=== PATIENT | female | born 1970 | race Caucasian/White ===

== ENCOUNTER 2020-07-28 05:38 | Inpatient (IN) ==
--- NOTE | 2020-07-15 13:50 | Anesthesiology Consultation ---
Date of Service July 15, 2020 Assessment & Plan (1) Encounter for pre-operative examination: Chart Review Chart Review: Pending: Refer to Additional Notes / Consult section (pending cardio clearance 07/23 and preop Covid testing ) and Patient seen in Pre Admission Testing Did call [facility]- no previous EKGs on file. Pt was set up for cardio clearance appt on 07/23/20 at [facility] secondary to abnormal EKG. Per PAT appt on 07/15/20, pt resides in [facility]. Denies any recent travel with exception to [facility] for medical appts. No known Covid positive contacts or Covid related symptoms. Scheduled for preop Covid testing 07/21/20= will await results. Educated on importance of self quarantining, social distancing and wearing mask in public both for the patient and household contacts. Consults Requested cardiac Teaching & Discussion Pre-Anesthesia Teaching/Discussion Notes: Instructed NPO after midnight before surgery,except medications with 15 cc of water. Medication instructions p rovided according to the PAT guidelines. History Surgery Operation Date: 07/28/20 10:05 Proposed Procedures p L4-S1 Decompression and Fusion, Spinal Cord Monitoring - Jose Manuel Sommer DO Height/Weight Height: 4 ft 11.75 in Weight: 68.7 kg Allergies Allergy/AdvReac Type Severity Reaction Status Date / Time doxycycline Allergy Intermediate Hives Verified 07/10/20 09:53 Penicillins Allergy Intermediate SWELLING/HI Verified 07/10/20 09:53 VES Medications Home Medications Medication Instructions Recorded Confirmed Last Taken No Known Home Medications 07/10/20 07/10/20 Unknown Past Medical History Medical History History of kidney stones NO CURRENT ISSUES Lumbar herniated disc CAUSING RT FOOT NUMBNESS/TINGLING SENSATION Exercise / Class Metabolic Activity II 4-5 Yardwork/Stairs/Walk up hill (ONE FLIGHT OF STAIRS -NO CHEST PAIN OR SOB ) Past Family History Family History Father Family history of diabetes mellitus Other No family history of adverse response to anesthesia Past Surgical History Surgical History History of bilateral tubal ligation History of tooth extraction Hx of lumpectomy RT/LEFT (BENIGN) Past Anesthesia History No Hx of Anesthesia Complications and No Family Hx of Anesthesia Complications History of PONV No Hx of PONV and No Hx of Motion Sickness Social History Smoking Status: Current every day smoker tobacco type: cigarettes Smoking cigarettes per day: 20 CIG DAILY Do You Dip or Chew Tobacco: No Hx Alcohol Use: No Hx Substance Use: No Review of Systems Patient denies chest pain, shortness of breath, dyspnea on exertion, reflux, cough, wheezing, palpitations. No hx of seizures, stroke, NH, apnea/snoring. No hx of blood clots or blood tra nsfusions Physical Exam Vital Signs VITALS BP 155/91 P 75 TEMP 97.6 SP02 98% RESP 16 Constitutional no acute distress ENMT Mouth: no TMJ clicking Thyromental Distance: < 3.5 Finger Breadths (3.0) Mallampati Class: II (smaller mouth ) Missing all teeth Neck + limited neck extension (mild ) Respiratory normal respiratory effort; no respiratory distress Auscultation: lungs clear to auscultation bilaterally and + diminished lung sounds (mild throughout ); no wheezes Cardiovascular Rate/Rhythm: regular rate and regular rhythm Heart Sounds: no murmur Vessels: no carotid bruit Musculoskeletal Spine: no pain with cervical ROM Extremities: extremities normal to inspection Psychiatric Orientation: alert Testing Laboratory Results 07/15/20 13:56 07/15/20 13:56 PT 10.3 Seconds (9.0-12.0) 07/15/20 13:56 INR 1.0 (0.9-1.1) 07/15/20 13:56 APTT 27.6 Seconds (21.0-31.0) 07/15/20 13:56 Urine Color Yellow 07/15/20 Unknown Urine Appearance Clear (Clear) 07/15/20 Unknown Urine pH 5.0 (4.5-7.5) 07/15/20 Unknown Ur Specific Arabi 1.025 (1.000-1.030) 07/15/20 Unknown Urine Protein Trace (Negative) H 07/15/20 Unknown Urine Glucose (UA) Negative (Negative) 07/15/20 Unknown Urine Ketones Negative (Negative) 07/15/20 Unknown Urine Nitrite Negative (Negative) 07/15/20 Unknown Ur Leukocyte Esterase Negative (Negative) 07/15/20 Unknown Urine RBC 5-10 /hpf (0-4) H 07/15/20 Unknown Urine WBC 0-5 /hpf (0-5) 07/15/20 Unknown Ur Epithelial Cells >30 /lpf (0-5) H 07/15/20 Unknown Blood Type B Positive 07/15/20 13:56 Antibody Screen NEGATIVE 07/15/20 13:56 Electrocardiogram Date: 07/15/20 Findings: + NSR @ (65) ST and T wave abnormality, consider anterolateral ischemia. (Set up for cardio clearance) Chest X-Ray Date: 07/15/20 Findings: + NAD
--- NOTE | 2020-07-15 14:33 | XRay Report ---
XR chest Pre-admission PA/Lat CLINICAL HISTORY: Preoperative evaluation. COMPARISON STUDY: No previous studies for comparison. FINDINGS: Lung volumes are normal. Lungs are clear. There is no pneumothorax or pleural effusion. Car diac size is normal. Mediastinal contours are normal. There is no evidence for pulmonary edema. IMPRESSION: No acute cardiopulmonary findings. ACT 112: Negative or not required by law. Electronically signed by: Leroy Wood M.D. 07/15/2020 2:32 PM
[2020-07-15 15:29] LABS: Basophils # (auto) 0.07 K/uL (0-0.2); Eosinophils # (auto) 0.13 K/uL (0-0.5); Eosinophils % (auto) 1.8 %; Hemoglobin 14.5 g/dL (12.0-16.0); Immature Granulocytes # (auto) 0.02 K/uL (0.00-0.02); Immature Granulocytes % (auto) 0.3 %; Lymphocytes % (auto) 30.8 %; Mean Corpuscular Hemoglobin 30.3 pg (25-34); Mean Corpuscular Hgb Conc 35.4 g/dL (32-36); Mean Corpuscular Volume 85.8 fL (80-100); Mean Platelet Volume 9.8 fL (7.4-10.4); Monocytes # (auto) 0.36 K/uL (0.11-0.59); Neutrophils # (auto) 4.36 K/uL (1.4-6.5); Neutrophils % (auto) 61.1 %; Platelet Count 292 K/uL (130-400); RDW Coefficient of Variation 12.7 % (11.5-14.5); Red Blood Count 4.78 M/uL (4.2-5.4); White Blood Count 7.14 K/uL (4.8-10.8)
--- NOTE | 2020-07-15 15:43 | Electrocardiogram Report ---
Test Reason : Blood Pressure : / mmHG Vent. Rate : 065 BPM Atrial Rate : 065 BPM P-R Int : 164 ms QRS Dur : 080 ms QT Int : 394 ms P-R-T Axes : 071 015 -37 degrees QTc Int : 409 ms Normal sinus rhythm Abnormal ECG No previous ECGs available Confirmed by Yifan Guadarrama ([id number]) on 07/15/2020 3:43:15 PM Referred By: Jose Manuel Sommer Confirmed By:Yifan Guadarrama
[2020-07-15 15:46] LABS: Appearance Urine Clear (Clear); Bilirubin Urine Negative (Negative); Blood Urine 2+ (Negative); Color Urine Yellow; Glucose Urine UA Negative (Negative); Ketones Urine Negative (Negative); Leukocyte Esterase Urine Negative (Negative); Nitrite Urine Negative (Negative); Protein Urine Trace (Negative); Specific Gravity Urine 1.025 (1.000-1.030); Urobilinogen Urine Negative (Negative)
[2020-07-15 15:50] LABS: Partial Thromboplastin Time 27.6 Seconds (21.0-31.0); Prothrombin Time 10.3 Seconds (9.0-12.0)
[2020-07-15 16:11] LABS: Bacteria Urine 1+ (Negative); Epithelial Cell Urine >30 /lpf (0-5); WBC Urine 0-5 /hpf (0-5)
[2020-07-15 16:12] LABS: BUN Creatinine Ratio 12.5 (10-20); Calcium 9.3 mg/dl (8.5-10.1); Creatinine Clr Calc Pharmacy 81.7 ml/min; Est GFR (African American) 116.3; Est GFR (Non-African American) 100.3; Potassium 3.4 mmol/L (3.5-5.1)
[2020-07-28] MEDS ORDERED: GABAPENTIN 900 MG DOSE PO SCH (06:00)
[2020-07-28] MEDS ORDERED: CLINDAMYCIN 600 MG/54 ML BAG IV SCH (06:00)
[2020-07-28] MEDS ORDERED: LR 15ML/HR IV SCH (06:00)
[2020-07-28] MEDS ORDERED: MIDAZOLAM HCL 1 MG/ML 2ML VIAL ONE (06:52)
[2020-07-28] MEDS ORDERED: BUPIVACAINE/EPINEPHRINE 0.5% MPF 1:200,000 30 ML VIAL ONE (06:59)
[2020-07-28] MEDS ORDERED: BACITRACIN INJ 50,000 UNIT VIAL ONE (06:59)
[2020-07-28] MEDS ORDERED: PROPOFOL IV EMULSION 10 MG/ML 20 ML VIAL IV ONE (07:01)
[2020-07-28] MEDS ORDERED: LIDOCAINE HCL 2% 2 ML VIAL/AMP(20MG/ML) INFIL ONE ×2 (07:01→07:14)
[2020-07-28] MEDS ORDERED: fentaNYL citrate 100 MCG/2 ML VIAL ONE ×2 (07:01→07:09)
[2020-07-28] MEDS ORDERED: HYDROmorphone INJ 2 MG/ML SYR/VIAL ONE (07:09)
[2020-07-28] MEDS ORDERED: ONDANSETRON INJ 2 MG/ML 2 ML VIAL ONE (07:09)
[2020-07-28] MEDS ORDERED: DEXAMETHASONE SOD INJ 4 MG/ML VIAL ONE (07:09)
[2020-07-28] MEDS ORDERED: HYDROmorphone INJ 1 MG/ML SYRINGE IV PRN ×2 (07:34→11:18)
[2020-07-28] MEDS ORDERED: ATROPINE SULFATE 0.1 MG/ML 10ML SYR IV PRN (07:34)
[2020-07-28] MEDS ORDERED: ONDANSETRON INJ 2 MG/ML 2 ML VIAL IV PRN ×2 (07:34→11:18)
[2020-07-28] MEDS ORDERED: LABETALOL HCL IV 5 MG/ML 20ML IV PRN (07:34)
--- NOTE | 2020-07-28 07:41 | History & Physical Bridge Note ---
Date of Service July 28, 2020 History & Physical Bridge Note I have examined the patient, reviewed the History & Physical and in the interval since the performance of the History & Physical I have noted the following changes of clinical significance: no changes noted
--- NOTE | 2020-07-28 07:42 | History & Physical Report ---
Date of Service July 28, 2020 Assessment & Plan (1) Lumbar disc herniation with radiculopathy: Admission and Anticipated Discharge Date Admission Date: L4-S1 decompression fusion History of Present Illness Chief Complaint: Back and leg pain Primary Care Provider: Chelita Chong MD This is a 50-year-old female who presents with chronic persistent back and leg pain after failing course of nonoperative care she is here for surgical invention. Allergies Allergy/AdvReac Type Severity Reaction Status Date / Time doxycycline Allergy Intermediate Hives Verified 07/28/20 06:10 Penicillins Allergy Intermediate SWELLING/HI Verified 07/28/20 06:10 VES Home Medications Medication Instructions Recorded Confirmed Type No Known Home Medications 07/10/20 07/28/20 History Past Med/Surg History Medical History History of kidney stones NO CURRENT ISSUES Lumbar herniated disc CAUSING RT FOOT NUMBNESS/TINGLING SENSATION Surgical History History of bilateral tubal ligation History of tooth extraction Hx of lumpectomy RT/LEFT (BENIGN) Family History Father Family history of diabetes mellitus Other No family history of adverse response to anesthesia Social History Smoking Status: Current every day smoker Cigarettes Per Day: 20 CIG DAILY; Second Hand Exposure: Yes; Do You Dip or Chew Tobacco: No; Tobacco Cessation Education Requested by Patient: No Hx Alcohol Use: No Hx Substance Use: No Preferred Language: Martiniquais Privacy Specialist Required: No Beliefs That Will Affect Care: None Current Living Situation: Spouse Feels Safe at Home: Yes Safety Concerns: Feels Safe At This Time Assistive Devices: Glasses Physical Exam Physical Exam: Patient is alert and oriented Heart regular in rhythm Lungs clear to auscultation Results & Data ([facility]) Vital Signs (Past 12 Hours) Vital Signs Temp Pulse Resp BP Pulse Ox 07/28/20 06:12 36.6 C 66 20 160/84 H 98
[2020-07-28] MEDS ORDERED: FLOSEAL HEMOSTATIC MATRIX 10ML TOP ONE (08:43)
[2020-07-28] MEDS ORDERED: NEOSTIGMINE METHYLSULFATE 1 MG/ML 10ML VIAL ONE (09:19)
[2020-07-28] MEDS ORDERED: ePHEDrine sulfate 50 MG/ML SYR ONE (09:19)
[2020-07-28] MEDS ORDERED: GLYCOPYRROLATE 0.2 MG/ML VIAL ONE (09:20)
--- NOTE | 2020-07-28 10:08 | Operative Report ---
Post Operative Report Pre & Post Diagnosis Operation Date: 07/28/20 07:45 Pre-Op Diagnosis: Lumbar Disc Herniation with Radiculopathy L4-S1 Post-Op Diagnosis: Lumbar Disc Herniation with Radiculopathy L4-S1 I identified the patient and participated in the time-out.: Yes Procedure Operation Date: 07/28/20 07:45 Actual Procedures #1 lumbar decompression with bilateral medial facetectomies and foraminotomies L4-5 L5-S1. #2 posterior spinal fusion L4-5 L5-S1. #3 placement posterior instrumentation L4-5 L5-S1. #4 interbody fusion L4-5 L5 S1. #5 placement peek cage 10 x 22 mm at L4-5 and 8 x 22 mm L5-S1 peer #6 placement locally harvested morselized autograft in the posterior gutters. #7 placement infuse collagen sponge, and master graft in the posterior lateral gutters and ostial amp interbody space. Surgeon Jose Manuel Sommer, Bdr Eliane Ruiz Estimated Blood Loss 50 Findings Consistent with Post-Op Diagnosis Specimens None Indications This is a 50-year-old female who presents with above-mentioned diagnosis after failing since course of nonoperative care she is here for the above-mentioned procedure. Description of Procedure Patient was met with identified informed consent obtained. Patient was then taken to the operative suite underwent an patient placed in a prone position the Milad table atop the Venu frame. All bony prominences well-padded eyes inspected to ensure no external pressure placed upon the. This point the lumbar spine was prepped and draped in a sterile fashion. Sharp dissection with the assistance of Bovie cautery was performed down to and exposing the lamina and transverse processes of L4-L5 and sacral ala bilaterally. From a caudal cephalad fashion complete laminectomy of L5 and L4 was performed with bilateral medial facetectomies and foraminotomies addressing spinal stenosis. Pedicle screws were then placed in L4-L5 and S1 levels bilaterally with assistance of fluoroscopy the proper sized ayanna placed. By way of a transforaminal portion right a complete discectomy of L5-S1 was performed this included removal of all fragments of disc material that migrated caudally severely compressing the exiting and traversing S1 nerve roots. The endplates were then curetted to subcortical bleeding bone and an 8 x 22 mm peek cage filled with osteobone graft tapped in position. Then proceeded L4-[address] of transfer approach on the right complete discectomy performed endplates curetted to subcortical bleeding bone and the 10 x 22 mm peek cage filled with osteobone graft tapped position. The rods were then locked into final position bilaterally. The transverse processes of L4-L5 and sacral ala burred to subcortical bleeding bone. Infuse collagen sponge master graft local autograft was placed in the posterior gutters. 15 round ELVIRA drain inserted. The incision was then closed with 1 Vicryl to fascia 2-0 Vicryl subcutaneously and 4 Monocryl for final skin closure. Steri-Strip sterile dressings placed. Patient waken taken to PACU stable condition. Please note spinal cord monitoring was utilized at the procedure no changes noted. Lastly Eliane Ruiz was present at the entire surgery involved the patient positioning complex portions of the surgery and final skin closure. I attest to the content of the Intraoperative Record and any orders documented therein. Any exceptions are noted below.
--- NOTE | 2020-07-28 10:46 | Fluoroscopy Report ---
INTRAOPERATIVE RADIOGRAPHS CLINICAL HISTORY: L4-S1 spinal fusion. Fluoroscopy time: 23 seconds. FINDINGS: 2 spot fluoroscopic views of the lumbar spine are presented. There has been discectomy at L 4-L5 and L5-S1 with laminectomy and posterior fusion from L4-S1. Interpedicular screws are present at all levels. The orthopedic hardware appears intact. IMPRESSION: Intraoperative images from L4-S1 spinal fusion as above. Electronically signed by: Devaughn Encarnacion M.D. 07/28/2020 10:45 AM
--- NOTE | 2020-07-28 10:53 | Anesthesiology Progress Note ---
Date of Service July 28, 2020 Anesthesia Post Procedure Vital Signs Vital Signs: Temp Pulse Pulse Resp BP Pulse Ox 07/28/20 10:40 80 12 111/80 94 07/28/20 10:30 72 12 112/64 95 07/28/20 10:20 36.7 C 84 16 125/76 95 07/28/20 06:12 36.6 C 66 20 160/84 H 98 Transfer of Care Handoff Completed per policy Notes Mental Status: alert / awake / arousable Patient Amnestic to Procedure: Yes Nausea / Vomiting: adequately controlled Pain: adequately controlled Airway Patency, RR, SpO2: stable & adequate BP & HR: stable & adequate Hydration State: stable & adequate Anesthetic Complications: no major complications apparent
[2020-07-28] MEDS ORDERED: ACETAMINOPHEN 1,000 MG/100 ML VIAL IV PRN (11:18)
[2020-07-28] MEDS ORDERED: ALUMINUM/MAGNESIUM SUSP 30 ML UDC PO PRN (11:18)
[2020-07-28] MEDS ORDERED: LORazepam 0.5 MG/1 ML VIAL IV PRN (11:18)
[2020-07-28] MEDS ORDERED: HYDROmorphone INJ 0.5 MG/0.5 ML SYR IV PRN (11:18)
[2020-07-28] MEDS ORDERED: FAMOTIDINE 20 MG TAB PO PRN (11:18)
[2020-07-28] MEDS ORDERED: ONDANSETRON 4 MG OD TAB PO PRN (11:18)
[2020-07-28] MEDS ORDERED: METOCLOPRAMIDE HCL INJ 5 MG/ML 2 ML VIAL IV PRN (11:18)
[2020-07-28] MEDS ORDERED: MAGNESIUM HYDROXIDE SUSP 30 ML UDC PO PRN (11:18)
[2020-07-28] MEDS ORDERED: hydrOXYzine HCl 25 MG TAB PO PRN (11:18)
[2020-07-28] MEDS ORDERED: PROMETHAZINE HCL 12.5 MG in SODIUM CHLORIDE 0.9% 50 ML IV PRN (11:18)
[2020-07-28] MEDS ORDERED: DO NOT ADMINISTER FLU VACCINE PRN (11:18)
[2020-07-28] MEDS ORDERED: diphenhydrAMINE Capsule 25 MG CAP PO PRN (11:18)
[2020-07-28] MEDS ORDERED: oxyCODONE HCL IR 5 MG TAB (IMMEDIATE RELEASE) PO PRN (11:18)
[2020-07-28] MEDS ORDERED: NALOXONE HCL 0.4 MG/1 ML VIAL/CARP IV PRN (11:18)
[2020-07-28] MEDS ORDERED: traMADol HCL 50 MG TABLET PO PRN (11:18)
[2020-07-28] MEDS ORDERED: bisacodyL 10 MG SUPP PR PRN (11:18)
[2020-07-28] MEDS ORDERED: LORazepam 0.5 MG TAB PO PRN (11:18)
[2020-07-28] MEDS ORDERED: SOD PHOSPHATE/SOD BIPHOSPHATE ENEMA 132 ML BTL PR PRN (11:18)
[2020-07-28] MEDS ORDERED: DO NOT ADMINISTER PNEUMOCOCCAL VACCINE PRN (11:18)
[2020-07-28] MEDS: KETOROLAC TROMETHAMINE 15 MG/ML VIAL IV SCH ×3 (13:15→23:17)
[2020-07-28] MEDS: LACTATED RINGER'S 1,000 ML IV SCH ×2 (13:15→17:24)
[2020-07-28] MEDS: CLINDAMYCIN 600 MG in DEXTROSE 5% 50 ML IV SCH ×2 (16:24→23:16)
[2020-07-28] MEDS: DOCUSATE SODIUM/SENNA 50/8.6MG TAB PO SCH (20:12)
[2020-07-29] MEDS: LACTATED RINGER'S 1,000 ML IV SCH (02:08)
[2020-07-29 06:01] LABS: Basophils # (auto) 0.01 K/uL (0-0.2); Basophils % (auto) 0.1 %; Eosinophils # (auto) 0.01 K/uL (0-0.5); Eosinophils % (auto) 0.1 %; Hematocrit (blood only) 33.7 % (37-47); Hemoglobin 11.8 g/dL (12.0-16.0); Immature Granulocytes # (auto) 0.02 K/uL (0.00-0.02); Immature Granulocytes % (auto) 0.2 %; Lymphocytes # (auto) 1.28 K/uL (1.2-3.4); Lymphocytes % (auto) 10.2 %; Mean Corpuscular Hemoglobin 30.3 pg (25-34); Mean Corpuscular Volume 86.4 fL (80-100); Mean Platelet Volume 9.4 fL (7.4-10.4); Monocytes # (auto) 0.71 K/uL (0.11-0.59); Monocytes % (auto) 5.7 %; Neutrophils % (auto) 83.7 %; Platelet Count 208 K/uL (130-400); RDW Coefficient of Variation 12.7 % (11.5-14.5); RDW Standard Deviation 40.2 fL (36.4-46.3); White Blood Count 12.53 K/uL (4.8-10.8)
[2020-07-29] MEDS: KETOROLAC TROMETHAMINE 15 MG/ML VIAL IV SCH (06:01)
[2020-07-29] MEDS: POLYETHYLENE (MIRALAX) 17 GM PACK PO SCH ×3 (06:01→17:07)
[2020-07-29 06:26] LABS: BUN Creatinine Ratio 19.6 (10-20); Calcium 8.2 mg/dl (8.5-10.1); Creatinine Clr Calc Pharmacy 103.8 ml/min; Est GFR (African American) 125.7; Est GFR (Non-African American) 108.5; Potassium 3.5 mmol/L (3.5-5.1)
--- NOTE | 2020-07-29 10:07 | Orthopedic Progress Note ---
Date of Service July 29, 2020 Assessment & Plan (1) Lumbar disc herniation with radiculopathy: Admission and Anticipated Discharge Date Admission Date: July 28, 2020 Stable continue physical therapy monitor ELVIRA output anticipate possible discharge home tomorrow. Subjective Back pain controlled leg pain markedly improved Physical Exam Physical Exam: Patient is in the chair at the bedside. Is good strength testing. Appears comfortable. Results & Data ([facility]) Vital Signs (Past 12 Hours) Vital Signs Temp Pulse Resp BP Pulse Ox 07/29/20 07:06 36.7 C 62 18 133/82 94 07/29/20 03:59 36.6 C 68 18 135/92 93 07/28/20 22:41 36.9 C 77 16 112/67 92
[2020-07-29] MEDS ORDERED: Nursing to Pharmacy Communication SCH (10:30)
[2020-07-29] MEDS: ACETAMINOPHEN 500 MG TAB PO PRN ×2 (15:53→23:57)
[2020-07-29] MEDS: DOCUSATE SODIUM/SENNA 50/8.6MG TAB PO SCH (20:18)
[2020-07-30] MEDS: POLYETHYLENE (MIRALAX) 17 GM PACK PO SCH (00:11)
[2020-07-30] MEDS ORDERED: dexAMETHasone 8 MG in SYRINGE 0 ML IV SCH (09:00)
--- NOTE | 2020-07-30 10:42 | Discharge Summary ---
Date of Service July 30, 2020 Admission HPI Per Admitting Provider This is a 50-year-old female who presents with chronic persistent back and leg pain after failing course of nonoperative care she is here for surgical invention. Principal Diagnosis Lumbar spinal stenosis with radiculopathy Discharge Data Allergies Allergy/AdvReac Type Severity Reaction Status Date / Time doxycycline Allergy Intermediate Hives Verified 07/28/20 06:10 Penicillins Allergy Intermediate SWELLING/HI Verified 07/28/20 06:10 VES Consultations 07/28/20 11:18 Consult Case Management - Discharge Planning Routine Procedures Performed Operation Date: 07/28/20 07:45 Actual Procedures p L4-S1 Decompression and Fusion, with Bone Morphogenetic Protein, Application of Osteoamp Allograft, Interbody Fusions L4-S1, with Spinal Cord Monitoring(Bilateral) - Jose Manuel Sommer DO Ordered Studies 07/28/20 09:35 FL fluoroscopy <1hr Routine FL lumbar spine 2-3V Routine Hospital Course (1) Lumbar disc herniation with radiculopathy: Patient underwent lumbar decompression fusion tolerated this well second orthopedic for postoperative. Postop day 1 she was up and ambulating. Progressed appropriately postop day #2. ELVIRA drain decreasing probably. Excellent strength testing. Pain well controlled. Subsequently discharged home. Discharge orders instructions from the chart for further review. Total Time Total Time Spent Total Time Spent (In Minutes): 20 minutes Discharge Plan Discharge Items Patient Disposition: Home - Self-Care Reason For Visit: Intervertebral Disc Disorder with Radiculopathy Discharge Diagnosis: Lumbar spinal stenosis with radiculopathy Activity: As commented below Non-emergency contact: Primary Care Provider Call non-emergency contact if: you have any medication questions Follow-up/Referrals: Chelita Chong MD [Primary Care Provider] - Diet: Regular Addtl Attending Provider Instructions: ACTIVITY RECOMMENDATIONS: SELF CARE INSTRUCTIONS AFTER THORACIC/LUMBAR FUSIONS 1. You may walk to your tolerance. It is good exercise for your legs and back. Expect some back and intermittent leg aches and pains. 2. You may perform "counter-top" level activities (make a sandwich, magno with a project, etc.). 3. No bending or lifting of more than 10 pounds or back twisting of any nature (roll like a log when turning in bed). 4. You may ride in a car for 20-30 minutes at a time. No driving until after your first visit with your doctor. 5. Frequent changes of position and restricting sitting to 30 minutes at a time will help limit the amount of back spasms and stiffness you may experience. 6. You may discontinue the use of ambulatory aids (cane, crutches, etc.) once your strength and confidence allow. 7. You may armature winder repair helper the shower and let water strike your incision when you arrive home at least once daily. Do not take a tub bath, sit in a hot tub or go into a swimming pool until after your first recheck in the office. SPECIAL CARE INSTRUCTIONS: VERY IMPORTANT TO READ AND REVIEW A. Your surgical incision has been closed with a cosmetic suture under the skin that will dissolve in about 6 weeks. In 14 days, you can use a pair of clean scissors and cut the suture that is left outside of the skin at the ends of your incision. 1. The small skin tapes can be removed 7 days after surgery if they have not fallen off by that point. 2. You may keep the wound open to air as much as possible to promote healing after post-op day number 5 unless told otherwise by your doctor. 3. If you think the wound looks like it is becoming infected (redness or worsening drainage) and/or you are experiencing fever, chill or worsening back pain and muscle spasms, contact the office so that we may evaluate you as soon as possible. B. Complications are uncommon, but please contact us if you have any signs or symptoms of: 1. wound infection (fever higher than 102.5 degrees F, redness, separation of wound, drainage, or increasing pain from the incision) 2. blood clots in legs (pain, swelling, redness and warmth in legs) 3. urinary tract infection (fever higher than 102.5 degrees F, burning upon urination or increased frequency of urination) 4. nerve problems (inability to walk on your toes or heels, numbness, loss of bowel or bladder control) 5. any other symptoms that concern you C. Please call the office at if you have any concerns or questions about your operation or recovery. D. No smoking! Smoking drastically decreases the chance of a solid fusion. E. Do not take any anti-inflammatory medications (Indocin, Advil, Motrin, Aspirin, Naprosyn, etc.) as these may inhibit the chance of a solid fusion. Tylenol is okay to take for pain. MANAGING PAIN AFTER SPINAL SURGERY 1. Narcotic medication is intended for short-term use and will be provided for surgical pain. Surgical pain usually lasts for a period of 4-6 weeks. Narcotic medication includes Percocet, Vicodin, Darvocet, Tylenol #3 or Lortab. 2. Longer-term pain is more appropriately treated with non-narcotic medication such as Tylenol ES. 3. Muscle spasm is not appropriately treated with narcotics. Muscle relaxers such as Soma, Flexeril or Skelaxin can be used along with Tylenol ES. 4. Remember that we all live with some "aches and pains". This is not unusual or uncommon after an injury or as we get older. a. Back pain is expected and may include muscle spasms for 4 to 6 weeks after surgery. The pain should gradually improve. If the pain worsens for no apparent reason, please contact the office. b. Intermittent leg pain may also be experienced and should not be concerned about unless it worsens for no apparent reason. If so, please contact the office. 5. We will provide appropriate medication within the normal guidelines of their prescribed use. We will also be very cautious and aware of potential abuse and extended duration of patients' medication needs. a. Pain medications are for your comfort and to assist with sleep and rest so that the tissue can heal. They are not provided in order to return to normal activity and should not be used through the day. To do so or worsening pain at night can result from ongoing tissue damage and development of tolerance to the prescribed medicine. 6. Please allow 2-3 days to process refills. Prescriptions will not be mailed but must be picked up at the office. FOLLOW UP VISIT: Keep your scheduled follow-up appointment. Any questions, please call the office at . Pending Studies at Discharge: No Stand-Alone Forms: My Access [facility], Smoking Cessation Medications and DC Order Prescriptions: New tramadol 50 mg tablet 50 mg PO Q6H PRN (Reason: pain, moderate) Qty: 20 RF: 0 oxycodone 5 mg tablet 5 mg PO Q6H PRN (Reason: pain, severe) Qty: 2 RF: 0 No Action No Known Home Medications RF: 0 Discharge Orders: Discharge Order (Routine); Ordered 07/30/20 Ordered By: Jose Manuel Sommer Admission Data Admit Date/Time: 07/28/20 10:26 Attending Provider: Jose Manuel Sommer Admit Provider: Jose Manuel Sommer Primary Care Provider: Chelita Chong V.
== END 2020-07-30 13:05 | disposition home or self-care (01) | DRG 455 ==
LOC: ASU 05:38 → 3N 10:26